=== PATIENT | female | born 1980 | race Caucasian/White ===

== ENCOUNTER 2018-09-27 20:11 | Inpatient (IN) | payer MEDICAID ==
[~2018-09-27] VITALS: Ht 162.6 cm; Wt 79.4 kg
[~2018-09-27 20:11] MED LIST: ACE3 PO; Benzocaine 60 ML TP; DOCU240C67 PO; IBU800 PO; Lanolin TP; TUCKS TOP
[2018-09-27] MEDS ORDERED: FAMOTIDINE(*) 20MG/50ML PREMIX 50 ML IVPB PRN ×2 (20:14→21:30)
[2018-09-27] MEDS ORDERED: DLR(*) 1000 ML BAG 1,000 ML IV SCH (20:14)
[2018-09-27] MEDS ORDERED: LIDOCAINE/SOD BICARB 8.4% SYR SC PRN (20:15)
[2018-09-27] MEDS ORDERED: LIDOCAINE 1% LOCAL 300 MG/30ML INJ PRN (20:15)
[2018-09-27] MEDS ORDERED: DINOPROSTONE 10 MG INSERT PV ONE (20:15)
[2018-09-27] MEDS ORDERED: ZOLPIDEM TARTRATE 5 MG TAB PO PRN (20:15)
[2018-09-27] MEDS ORDERED: cefOXitin/DEX(*) 2GM/50ML PREM 50 ML IVPB PRN (20:15)
[2018-09-27] MEDS ORDERED: ONDANSETRON 4 MG/2 ML VIAL IVP PRN (20:15)
[2018-09-27] MEDS ORDERED: ACETAMINOPHEN 500 MG TAB PO PRN (20:15)
[2018-09-27] MEDS ORDERED: METOCLOPRAMIDE 10 MG/2 ML SDV IVP PRN (20:15)
[2018-09-27] MEDS ORDERED: fentaNYL CITR 100 MCG/2 ML AMP IVP PRN (20:15)
[2018-09-27] MEDS ORDERED: MISOPROSTOL 25 MCG CAP PV PRN (20:15)
[2018-09-27] MEDS ORDERED: TERBUTALINE SULF 1 MG/ML VIAL SUBQ PRN (20:15)
[2018-09-27] MEDS ORDERED: PENICILLIN G 5 MILLUN VIAL 5 MIU in NS(*) 0.9% 100 ML MINI-BAG 100 ML IVPB ONE (21:00)
[2018-09-27 21:16] LABS: PLATELET COUNT, AUTOMATED 179 K/uL (150-450)
[2018-09-27] MEDS: LR(*) 1000 ML BAG 1,000 ML IV PRN (21:24)
[2018-09-27] MEDS: OXYTOCIN 30 UNIT/NS 500 ML 500 ML IV PRN (21:26)
[2018-09-27] MEDS ORDERED: CALCIUM CARBONATE 500 MG CHEW PO PRN (21:30)
[2018-09-27] MEDS ORDERED: INSULIN HUM REG IV PRN (21:44)
[2018-09-27] MEDS ORDERED: NS(*) 0.9% 1000 ML BAG 1,000 ML IV PRN (21:44)
[2018-09-27] MEDS ORDERED: NS 0.9% IV PRN (21:44)
[2018-09-27] MEDS ORDERED: glyBURIDE 5 MG TAB PO ONE (21:50)
[2018-09-27 21:53] VITALS: BP 119/75; Ht 162.6 cm; Wt 79.4 kg
[2018-09-28] MEDS ORDERED: DINOPROSTONE 10 MG INSERT PV ONE
[2018-09-28] MEDS: LR(*) 1000 ML BAG 1,000 ML IV PRN ×3 (01:04→16:09)
[2018-09-28] MEDS: PENICILLIN G 2.5 MILLUN/100 ML 100 ML IVPB SCH ×5 (01:04→17:06)
[2018-09-28] MEDS: DLR(*) 1000 ML BAG 1,000 ML IV PRN ×2 (03:05→11:07)
[2018-09-28] MEDS ORDERED: fentaNYL CITR 100 MCG/2 ML AMP IT PRN (08:10)
[2018-09-28] MEDS ORDERED: LIDOCAINE/PF 2% 200MG/10ML AMP 200 MG/10 ML AMPUL EPI PRN (08:10)
[2018-09-28] MEDS ORDERED: FENTANYL/ROPIVACAINE 100 ML BAG EPI PRN (08:10)
[2018-09-28] MEDS ORDERED: BUPIVACAINE 0.25% MPF INJ EPI PRN (08:10)
[2018-09-28] MEDS ORDERED: BUPIVACAINE 0.5% INJ 30ML VIAL EPI PRN (08:10)
[2018-09-28] MEDS ORDERED: LIDO/EPI 2% MPF 1:200,000 20ML EPI PRN (08:10)
--- NOTE | 2018-09-28 08:59 | History & Physical ---
History of Present Illness Age of Patient: 38 : 6 Para or TPAL: 5 EDC per LMP: October 06, 2018 Estimated Gestational Age: 38.6 Chief Complaint IOL History of Present Illness Presents for IOL due to Class A2 GDM controlled with glyburide. She is GBS+ and desires sterilization. has been uncomplicated otherwise. Past Medical, Surgical, Family and Obstetric Histories reviewed. Please see ACOG chart. 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 No use of alcohol, tobacco, or illicit drugs. Med Rec Home Meds Discontinued Reported Medications Ibuprofen (Motrin) 800 Mg Tab, 800 MG PO Q8H PRN, 0 Refills TAKE WITH FOOD 04/14/08 Discontinued Scripts [Lanolin] 7 GM OINT No Conflict Check, 0 GM TP PRN PRN for DISCOMFORT FOR NURSING MOTHERS, TUBE Prov:WINSOME BOJORQUEZ MD 05/05/16 Glycerin/Witch Padmini [place] (PREPARATION H) 1 Pkg Pad, 0 PKG TOP PRN PRN for PAIN for 10 Days, PAD Prov:WINSOME BOJORQUEZ MD 05/05/16 Docusate Calcium (DOCUSATE CALCIUM) 240 Mg Capsule, 240 MG PO BID for 10 Days, CAPSULE Prov:WINSOME BOJORQUEZ MD 05/05/16 [Benzocaine] 60 ML AERS No Conflict Check, 0 ML TP PRN PRN for PAIN for 10 Days Prov:WINSOME BOJORQUEZ MD 05/05/16 Review of Systems All Systems Reviewed/Normal: Yes, Except as Noted Exam General Exam Vital Signs Vital Signs Date Time Temp Pulse Resp B/P (MAP) Pulse Ox O2 Delivery O2 Flow Rate FiO2 09/27/18 21:53 98.4 84 18 119/75 (90) 96 Room Air General Apperance: Alert/Awake/No Acute Distress Neuro: No Gross deficits Cardiovascular: Regular Rate and Rhythm Respiratory: No Respiratory Distress, Clear to Auscultation Abdomen: Soft, Non-Tender, Non-Distended Extremities: No Cyanosis,Clubbing or Edema Integumentary: Skin Intact without Lesions or Rash Psychological: Alert & Oriented X3, Appropriate Mood & Affect Cervical Dialation: 3 Cervical Effacement (%): 75 Cervical Consistency: Soft Cervical Position: Anterior Station: -2 Presentation: Vertex Fetus Heart Tone Variabilty: Moderate FHT Accelerations: 15X15 FHT Category: I Medical Decision Making Data Points Result Diagram: 09/27/18205609/27/182056 VTE Prophylasis: Adult Deep Vein Thrombosis/Pulmonary: No Pharmacological Contraindicati: Pt at Low Risk for VTE Mechanical Contraindications: Pt at Low Risk for VTE Assessment and Plan PRIMARY SCHOOL PRINCIPAL Plan: Routine Labor/Induct Care Problems: (1) 39 weeks gestation of Assessment & Plan: Cervidil last night and now transition to Pitocin. Expecting . (2) Admission for sterilization (3) GDM, class A2 Assessment & Plan: BS has been stable. Will utilize insulin sliding scale drip during active phase labor. Currently stable. LYUDMILA LUU MD September 28, 2018 08:59
[2018-09-28] MEDS: OXYTOCIN 30 UNIT/NS 500 ML 500 ML IV PRN (09:06)
[2018-09-28] MEDS ORDERED: OXYTOCIN 30 UNIT/NS 500 ML 500 ML IV PRN (09:30)
[2018-09-28] MEDS ORDERED: ePHEDrine 25 MG/5 ML DISP.SYR IVP ONE (10:36)
[2018-09-28] MEDS ORDERED: fentaNYL CITR 100 MCG/2 ML AMP ONE (12:36)
[2018-09-28] MEDS ORDERED: BUPIVACAINE 0.25% MPF INJ ONE (12:36)
[2018-09-28] MEDS ORDERED: FENTANYL/ROPIVACAINE 100ML BAG 100 ML ONE (12:37)
--- NOTE | 2018-09-28 13:24 | Anesthesia OB Pre-Anes Eval ---
History of Present Illness Anesthesia Start Date: September 28, 2018 Anesthesia Start Time: 12:40 OB Anesthesia Diagnosis: induction - medical Current Complication: diabetes EDC: October 06, 2018 : 6 Para: 5 Vital Signs: Vital Signs 09/27/18 21:53 Temp 98.4 Pulse 84 Resp 18 B/P (MAP) 119/75 (90) Pulse Ox 96 O2 Delivery Room Air Pain Ratin Heart Tones: 142 Result Diagram: 09/27/18205609/27/182056 Height (Inches): 64.00 Weight (Pounds): 175 BMI (kg/m2): 30 Past Medical History Medical History: diabetes Previous Anesthesia: epidural Attended Childbirth Classes?: No Hx Anesthesia Reactions: No Hx Family Anesthesia Reaction: No Current Medications: pitocin Home Meds Discontinued Reported Medications Ibuprofen (Motrin) 800 Mg Tab, 800 MG PO Q8H PRN, 0 Refills TAKE WITH FOOD 04/14/08 Discontinued Scripts [Lanolin] 7 GM OINT No Conflict Check, 0 GM TP PRN PRN for DISCOMFORT FOR NURSING MOTHERS, TUBE Prov:WINSOME BOJORQUEZ MD 05/05/16 Glycerin/Witch Padmini [place] (PREPARATION H) 1 Pkg Pad, 0 PKG TOP PRN PRN for PAIN for 10 Days, PAD Prov:WINSOME BOJORQUEZ MD 05/05/16 Docusate Calcium (DOCUSATE CALCIUM) 240 Mg Capsule, 240 MG PO BID for 10 Days, CAPSULE Prov:WINSOME BOJORQUEZ MD 05/05/16 [Benzocaine] 60 ML AERS No Conflict Check, 0 ML TP PRN PRN for PAIN for 10 Days Prov:WINSOME BOJORQUEZ MD 05/05/16 Allergies: Coded Allergies: No Known Drug Allergies (Verified , 02/25/16) Anesthesia OB ROS Neurological: No migraines/headaches, No seizures, No neuropathy, No other ENT: Denies Tooth caps, Denies Loose teeth, Denies Chipped teeth, Denies Dentures, Denies Bridges, Denies Retainers, Denies Veneers, Denies Implants, Denies Tongue ring, Denies Other Pulmonary: No asthma, No smoker (pks/day/yrs), No other Airway Class: ll Cardiovascular ROS: No edema, No arrhythmia, No other GI ROS: clear liquids, ice chips Last Solids Date: September 27, 2018 ROS: No Herpes, No STD(s), No Liver Disease, No Renal Disease, No Other Endocrine ROS: gestational diabetes Musculoskeletal ROS: No low back pain, No low back injury, No scoliosis, No other ASA Classification: 3 Assessment and Plan Anesthesia Plan: DONNIE OSBORNE CRNA September 28, 2018 13:24
--- NOTE | 2018-09-28 13:28 | Procedure Note ---
Anesthetic Placement Note Anesthesia Plan: CSE Permit for Anesthesia Signed: Yes Anesthesia Technique: Patient Sitting Anesthesia Prep: Chlorhexidine Interspace: L 3-4 Local Anesthetic: 1% Lidocaine Amount Local - cc's: 3 Anesthesia Needle: 17g Touhy/Schliff Anesthesia Attempts: 1 Loss of Resistance: Normal Saline Depth of NELSY (cm): 5 Epidural Needle Placement: Parasthesia (left leg) Intrathecal Needle: 27 Gauge Pencan Cerebral Spinal Fluid: Yes, Clear Catheter Insertion (cm): 4 (9.5 cm @ skin) Catheter Type: Odom - Spring Wound Epidural Dressing: Tegaderm, Tape Anesthesia Tray: Lot Number ([id number]), Expiration Date (01/04), Reference Number ([id number]) Anesthesia Medications: Intrathecal Dose: mcg Fentanyl (10), mg Marcaine MPF (2.5), Time (1252) Epidural Test Dose: 1.5 Lido/Epi (1:200,000), Dose - mL (3), Time (1255), Negative Epidural Infusion: 0.2% Ropivicaine, With Fentanyl 2mcg/ml, Start Time: (1308) Epidural Pump Setting: Bolus Dose - mL (8), Lockout - Minutes (20), Maintenance Rate - mL/hr (6), Maximum per Hour - mL (30) Complications: None DONNIE GODINEZ CRNA September 28, 2018 13:28
--- NOTE | 2018-09-28 18:15 | Labor Progress Note ---
Labor Subjective Progress Notes Subjective slow active phase labor. Has made progress but slow. Variable decelerations noted with contractions and at times deep. Just recently changing cervix. Leaking clear fluid. Epidural in place. Vaginal Discharge/Fluid: Bloody Show Labor Pain: Mild, Comfortable Labor Objective Vital Signs Vital Signs Date Time Temp Pulse Resp B/P (MAP) Pulse Ox O2 Delivery O2 Flow Rate FiO2 09/27/18 21:53 98.4 84 18 119/75 (90) 96 Room Air Vaginal Discharge/Fluid?: Bloody Show Cervical Dialation: 6 Cervical Effacement (%): 100 Cervical Consistency: Soft Cervical Position: Anterior Station: -1 Presentation: Vertex Fetus Heart Tone Variabilty: Moderate FHT Accelerations: 15X15 FHT Decelerations: Variable FHT Category: II Other Result Diagram: 09/27/18205609/27/182056 Assessment and Plan Problems: (1) 39 weeks gestation of Assessment & Plan: IUPC placed and amni-infusion initiated. Will see if this corrects the variables and buys us more time to get to complete and pushing. (2) Admission for sterilization (3) GDM, class A2 LYUDMILA LUU MD September 28, 2018 18:15
[2018-09-28] MEDS ORDERED: LANOLIN OINT 7 GM TUBE TP PRN (18:45)
[2018-09-28] MEDS ORDERED: MAGNESIUM HYDROXIDE* 30ML UDCP PO PRN (18:45)
[2018-09-28] MEDS ORDERED: BENZOCAINE 20% 60 ML BTL TP PRN (18:45)
[2018-09-28] MEDS ORDERED: HYDROCORTISONE 2.5% CR 30GM TB PR PRN (18:45)
[2018-09-28] MEDS ORDERED: GLYCERIN/WITCH HAZEL LEAF 1 PK TP PRN (18:45)
--- NOTE | 2018-09-28 18:52 | Anesthesia Progress Note ---
Progress/Maintenance Anesthesia Note Date: September 28, 2018 Anesthesia Note Time: 18:30 Pain Intensity: 3 Pump: On Pump Rate (ML/HR): 6 Motor Level: Bending Knees-Bilateral Dilatation: 10 Anesthesia Treatment: Fent 90 mcg per epidural cath Assessment and Plan Anesthesia Plan: CSE Anesthesia Stop Day: September 28, 2018 Anesthesia Stop Time: 18:45 DONNIE GODINEZ CRNA September 28, 2018 18:52
--- NOTE | 2018-09-28 18:56 | OB Delivery Note ---
Delivery Note Vaginal Delivery Type: Spont. Vaginal Delivery Delivery Date: September 28, 2018 Delivery Time: 18:34 Estimated Gestational Age(wks): 38.5 Delivery Anesthesia: Epidural Sex: Female [place] Apgars: 1 Minute (8), 5 Minute (9) Estimated Blood Loss: 100 Notes: Slow progression from 1 cm on admission to 3 cm in the morning and 4 cm [id number] and 6 cm at 1800. Severe variable decelerations noted and IUPC placed with amni oinfusion started. Shortly after she became completely dilated and started pushes. Pushing effectively and brought baby to position. Perineum stabilized while head delivered in NAYELI position over intact perineum. Nuchal cord x 1 reduced. Remainder of baby followed without difficulty. Terminal meconium noted. Placenta delivered spontaneous and intact. Uterus firm and scant bleeding. No complications. 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
[2018-09-28] MEDS: IBUPROFEN 800 MG TAB PO SCH (21:38)
[2018-09-28] MEDS: DOCUSATE CALCIUM 240 MG CAP PO SCH (21:38)
[2018-09-28] MEDS: ACETAMINOPHEN 325 MG TAB PO PRN (21:39)
[2018-09-28] MEDS: APAP/HYDROCODONE 325/5 TAB PO PRN (22:35)
[2018-09-29] VITALS (18 sets, daily range): BP systolic 70–117; BP diastolic 44–81
[2018-09-29] MEDS: IBUPROFEN 800 MG TAB PO SCH ×3 (03:21→16:39)
[2018-09-29] MEDS ORDERED: NORMOSOL R SOLN(*) 1000 ML BAG 1,000 ML IV ONE (08:09)
[2018-09-29] MEDS: DOCUSATE CALCIUM 240 MG CAP PO SCH ×2 (08:31→20:59)
[2018-09-29] MEDS ORDERED: LIDO/EPI 2% MPF 1:200,000 20ML ONE (10:29)
--- NOTE | 2018-09-29 11:27 | Anesthesia Post Eval Note ---
Anesthesia Post Eval Note Vital Signs 09/29/18 07:55 Temp 97.0 Pulse 65 Resp 16 B/P (MAP) 89/50 (63) Pulse Ox 95 O2 Delivery Room Air Pt able to participate in Eval: Yes Cardiovascular Status: Satisfactory Respiratory Status: Satisfactory Pain Managment: Satisfactory PO Nausea/Vomiting: Satisfactory Temperature Management: Satisfactory Mental Status: Satisfactory, Alert, Oriented X3 Post-Op Hydration Status: Satisfactory, Tolerating PO Well, Voiding w/o Difficulty Anesthesia Type: CSE Anesthesia Tolerance: scheduled for PPTL today DONNIE GODINEZ CRNA September 29, 2018 11:26
[2018-09-29] MEDS: ACETAMINOPHEN 325 MG TAB PO PRN (12:02)
--- NOTE | 2018-09-29 13:24 | NUR ---
Pt picked up from WORKFORCE DEVELOPMENT PROGRAM DIRECTOR room 3307 SBAR given by Lyubov JONES and paperwork gathered Transferring pt from bed to portable cart pt was unsteady on feet. Pt complains of CHILDS which is still present after receiving Tylenol approximately 1205 Pt NPO from 0000 09/29/18
[2018-09-29] MEDS ORDERED: ROPIVACAINE 0.2% 20 ML VIAL ONE (13:57)
[2018-09-29] MEDS ORDERED: MIDAZOLAM 2 MG/2 ML VIAL IVP PRN (14:00)
[2018-09-29] MEDS ORDERED: MIDAZOLAM 2 MG/2 ML VIAL ONE (14:04)
[2018-09-29] MEDS ORDERED: fentaNYL CITR 100 MCG/2 ML AMP ONE ×2 (14:25→14:31)
[2018-09-29] MEDS ORDERED: ONDANSETRON 4 MG/2 ML VIAL ONE (14:25)
[2018-09-29] MEDS ORDERED: METOCLOPRAMIDE 10 MG/2 ML SDV ONE (14:25)
[2018-09-29] MEDS ORDERED: DEXAMETHASONE SOD 4 MG/ML VIAL ONE (14:26)
[2018-09-29] MEDS ORDERED: ePHEDrine 25 MG/5 ML DISP.SYR IVP ONE (14:38)
--- NOTE | 2018-09-29 15:14 | Post Operative Note ---
Operative Note - PRODUCT S[employer]Y LEAD Operative Day Date: September 29, 2018 Time: 15:10 Physicians Surgeon: Michael Anesthesia: GETA/Epidural Diagnosis Pre-Op Diagnosis: s/p Sterilization Post-Op Diagnosis: same Procedure Findings: #[id number] Procedure(s): PPTL Specimen Removed:(Maybe N/A): tubal segments Complications: none Fluids Fluids: 1300 Estimated Blood Loss: minimal Dictated Date OP Note Dictated: September 29, 2018 Time OP Note Dictated: 15:11 Copies to: LYUDMILA LUU MD ; LYUDMILA LUU MD September 29, 2018 15:14
--- NOTE | 2018-09-29 15:17 | OB/GYN Progress Note ---
OB Subjective Progress Notes Subjective Doing well. No problems. Planning BTL today. GI: NEG Nausea : Voiding Well Pain: Mild OB Objective Physical Exam Vital Signs Date Time Temp Pulse Resp B/P (MAP) Pulse Ox O2 Delivery O2 Flow Rate FiO2 09/29/18 13:21 97.7 74 12 97/71 (80) 95 Room Air Intake and Output 09/29/18 07:00 Intake Total 5069 ml Output Total 1000 ml Balance 4069 ml Intake Oral 240 ml IV Total 4329 ml Other 500 ml Output Urine Total 1000 ml # Voids 1 General Appearance: Alert/Awake/No Acute Distress Neurological: No Gross deficits Cardiovascular: Normal Rhythm & Peripheral Pulses Respiratory: No Respiratory Distress Abdomen: Soft, Non-Tender, Non-Distended, Fundus Firm, Non-Tender Extremities: No Cyanosis,Clubbing or Edema Integumentary: Skin Intact without Lesions or Rash Psychological: Alert & Oriented X3, Appropriate Mood & Affect Result Diagram: 09/29/18 0552 09/27/182056 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
[2018-09-29] MEDS ORDERED: ONDANSETRON 4 MG/2 ML VIAL IVP ONE (16:30)
--- NOTE | 2018-09-29 17:33 | OPERATIVE REPORT 1 ---
EVENT DATE: September 29, 2018 SURGEON: Yunior Rodriguez MD ANESTHESIOLOGIST: William Younger MD ANESTHESIA: General endotracheal and epidural. PREOPERATIVE DIAGNOSES 1. Status post normal spontaneous vaginal delivery. 2. Desired sterilization. POSTOPERATIVE DIAGNOSES 1. Status post normal spontaneous vaginal delivery. 2. Desired sterilization. PROCEDURE PERFORMED tubal ligation via modified Valarie method. ESTIMATED BLOOD LOSS Minimal. FLUIDS Crystalloid 1300 mL IV. PROCEDURE IN DETAIL The patient was brought to the operating room with an epidural in place. This was attempted to be brought to surgical levels, but was unsuccessful; therefore, she was placed under general endotracheal anesthesia by Dr. Younger. She remained in the dorsal supine position and then was prepped and draped in the usual sterile fashion. Using a knife, a transverse linear incision was made below the umbilicus and continued down through the rectus fascia and through the peritoneum sharply. Finger retractors were used in the abdomen to manipulate the abdominal wall to the left side. Omentum was packed away with a mini laparotomy sponge. This exposed the left fallopian tube, which was grasped and followed out to the fimbriated end. It was then reset with a Vini in the isthmic portion, and a knuckle of tube was created with a plain gut tie. This was doubly ligated, and then a 2 cm segment of tube was excised. The same procedure was followed on the contralateral side in likewise fashion, ligating a knuckle of tube and excising a 2 cm segment. The pedicles were hemostatic upon completion. No visible complications. The rectus fascia and peritoneum were closed in one continuous stitch with 0 Vicryl, followed by irrigation and a few capillary bleeders cauterized. The subcuticular space was closed with 3-0 Vicryl Plus in a running nonlocking stitch, and the skin incision was repaired with 4-0 Monocryl simple subdermal and covered with Dermabond skin adhesive. She tolerated the procedure well. Sponge, lap, needle, and instrument counts were all correct times three. She was taken to recovery in stable condition. [facility]POX HOSPITALReginaldo
[2018-09-29] MEDS ORDERED: INFLUENZA VIRUS VAC 0.5ML SYR IM ONLY ONE (18:45)
[2018-09-29] MEDS ORDERED: DIPHTH/TETANUS/ACEL. PERTUSSIS IM ONLY ONE (18:45)
[2018-09-29] MEDS ORDERED: MEASLES,MUMP,RUBELLA VAC 0.5ML SUBQ ONE (18:45)
[2018-09-29] MEDS: APAP/HYDROCODONE 325/5 TAB PO PRN (19:38)
[2018-09-30] VITALS: BP 101/65
[2018-09-30] MEDS: IBUPROFEN 800 MG TAB PO SCH ×2 (00:20→10:36)
[2018-09-30 04:20] VITALS: BP 106/71
[2018-09-30] MEDS: APAP/HYDROCODONE 325/5 TAB PO PRN ×3 (06:30→16:45)
--- NOTE | 2018-09-30 08:12 | OB/GYN Progress Note ---
OB Subjective Progress Notes Subjective Doing well. Pain in incision but relief from medication. Voiding well. GI: NEG Nausea : Voiding Well Pain: Mild OB Objective Physical Exam Vital Signs Date Time Temp Pulse Resp B/P (MAP) Pulse Ox O2 Delivery O2 Flow Rate FiO2 09/30/18 04:20 98 16 106/71 (83) 96 Room Air 09/30/18 00:00 98.3 Intake and Output 09/30/18 07:00 Intake Total 2110 ml Output Total 1400 ml Balance 710 ml Intake Oral 360 ml IV Total 1750 ml Output Urine Total 1400 ml # Voids 3 General Appearance: Alert/Awake/No Acute Distress Neurological: No Gross deficits Cardiovascular: Normal Rhythm & Peripheral Pulses Respiratory: No Respiratory Distress Abdomen: Soft, Non-Tender, Non-Distended, Fundus Firm, Non-Tender Incision: Clean, Dry, Intact, Dermabond Extremities: No Cyanosis,Clubbing or Edema Integumentary: Skin Intact without Lesions or Rash Psychological: Alert & Oriented X3, Appropriate Mood & Affect Result Diagram: 09/29/18 0552 09/27/182056 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
[2018-09-30] MEDS ORDERED: IBUP800T37 PO (08:14)
[2018-09-30] MEDS ORDERED: LOR5/325 PO (08:14)
--- NOTE | 2018-09-30 08:16 | OB/GYN Discharge Summary ---
Discharge Summary Reason for Hosp/Final Diag: (1) 39 weeks gestation of (2) Admission for sterilization (3) GDM, class A2 (4) care and examination immediately after delivery [place] Vital Signs Vital Signs Date Time Temp Pulse Resp B/P (MAP) Pulse Ox O2 Delivery O2 Flow Rate FiO2 09/30/18 04:20 98 16 106/71 (83) 96 Room Air 09/30/18 00:00 98.3 Weight (Pounds): 175 Result Diagram: 09/29/1852 09/27/182056 Condition: Improved Discharge: Home Home Meds Active Scripts Hydrocodone Bit/Acetaminophen (HYDROCODON-ACETAMINOPHEN 5-325) 1 Each Tablet, 1- 2 EACH PO Q4H PRN for PAIN, #20 TAB 0 Refills Prov:LYUDMILA RODRIGUEZ MD 09/30/18 Discontinued Reported Medications Ibuprofen (Motrin) 800 Mg Tab, 800 MG PO Q8H PRN, 0 Refills TAKE WITH FOOD 04/14/08 Discontinued Scripts [Lanolin] 7 GM OINT No Conflict Check, 0 GM TP PRN PRN for DISCOMFORT FOR NURSI NG MOTHERS, TUBE Prov:WINSOME BOJORQUEZ MD 05/05/16 Glycerin/Witch Padmini [place] (PREPARATION H) 1 Pkg Pad, 0 PKG TOP PRN PRN for PAIN for 10 Days, PAD Prov:WINSOME BOJORQUEZ MD 05/05/16 Docusate Calcium (DOCUSATE CALCIUM) 240 Mg Capsule, 240 MG PO BID for 10 Days, CAPSULE Prov:WINSOME BOJORQUEZ MD 05/05/16 [Benzocaine] 60 ML AERS No Conflict Check, 0 ML TP PRN PRN for PAIN for 10 Days Prov:WINSOME BOJORQUEZ MD 05/05/16 Follow up Referrals: [facility] - In 6 Weeks @ [facility] with LYUDMILA RODRIGUEZ MD Follow up with: Dr. Rodriguez [phone] Follow up in: 6 wks PP or PO Discharge Diet: As Tolerates Discharge Activity: As Tolerates, No Heavy Lifting x 6 wks, No Heavy Lifting > 10lb, Pelvic Rest Copies to: LYUDMILA RODRIGUEZ MD ; LYUDMILA RODRIGUEZ MD September 30, 2018 08:16
[2018-09-30] MEDS: DOCUSATE CALCIUM 240 MG CAP PO SCH (10:36)
[2018-09-30 10:50] VITALS: BP 115/67
[2018-09-30 12:39] VITALS: BP 101/66
== END 2018-09-30 18:10 | disposition home or self-care (01) | DRG 798 ==
LOC: OB 20:11 → PED 09-29 15:00
PROVIDERS: ADMIT Obstetrics & Gynecology; ATTEND Obstetrics & Gynecology
PROC: 10E0XZZ Delivery of Products of Conception, External Approach (ICD-10-PCS; 2018-09-28)
PROC: 10H07YZ Insertion of Other Device into Products of Conception, Via Natural or Artificial Opening (ICD-10-PCS; 2018-09-28)
PROC: 4A1H74Z Monitoring of Products of Conception, Cardiac Electrical Activity, Via Natural or Artificial Opening (ICD-10-PCS; 2018-09-28)
PROC: 3E0E7GC Introduction of Other Therapeutic Substance into Products of Conception, Via Natural or Artificial Opening (ICD-10-PCS; 2018-09-28)
PROC: 3E0P7VZ Introduction of Hormone into Female Reproductive, Via Natural or Artificial Opening (ICD-10-PCS; 2018-09-28)
PROC: 0UB70ZZ Excision of Bilateral Fallopian Tubes, Open Approach (ICD-10-PCS; principal; 2018-09-29 13:30)
DX: O24.425 Gestational diabetes mellitus in childbirth, controlled by oral hypoglycemic drugs (principal); Z37.0 Single live birth; O99.824 Streptococcus B carrier state complicating childbirth; Z3A.39 39 weeks gestation of pregnancy; O76 Abnormality in fetal heart rate and rhythm complicating labor and delivery; O69.81X0 Labor and delivery complicated by cord around neck, without compression, not applicable or unspecified; O77.0 Labor and delivery complicated by meconium in amniotic fluid; Z30.2 Encounter for sterilization; Z79.84 Long term (current) use of oral hypoglycemic drugs
CPT/HCPCS: 36415; 36416; 82040; 82247; 82310; 82374; 82435; 82565; 82947; 82948; 84075; 84132; 84155; 84295; 84450; 84460; 84520; 85025; 85027; 86703; 86850; 86900; 86901; 88302; J1100; J1815; J2250; J2405; J2540; J2765; J2795; J3010; J3490; J7030; J7050; J7120; S0020